=== PATIENT | male | born 1995 | race Caucasian/White ===

== ENCOUNTER 2018-08-31 11:49 | Emergency (ER) | payer OTHER ==
[2018-08-31] MEDS ORDERED: CYCLOBENZAPRINE 10 MG TAB ONE (12:38)
[2018-08-31] MEDS ORDERED: IBUPROFEN 400 MG TAB ONE (12:38)
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
[2018-08-31] MEDS ORDERED: HYDROCODONE/APAP 5/325 MG TAB ONE (14:12)
== END 2018-08-31 14:07 | disposition home or self-care (01) ==
LOC: ER 11:49
DX: M54.2 Cervicalgia (principal); R07.89 Other chest pain; V49.9XXA Car occupant (driver) (passenger) injured in unspecified traffic accident, initial encounter; J45.909 Unspecified asthma, uncomplicated
CPT/HCPCS: 70450; 71045; 72125; 99284

== ENCOUNTER 2018-09-02 12:23 | Emergency (ER) | payer OTHER ==
[2018-09-02] MEDS ORDERED: MECLIZINE HCL 12.5 MG TAB ONE (14:19)
[2018-09-02] MEDS ORDERED: DIAZEPAM 5 MG TABLET ONE (15:20)
--- NOTE | 2018-09-02 17:42 | ER ---
Nurse's Notes [facility] Name: Dre Durham Age: 22 yrs Sex: Male : 1995 Arrival Date: 09/02/2018 Time: 12:25 Bed 28 Private MD: Diagnosis: Benign positional vertigo Presentation: 09/02 12:30 Presenting complaint: Patient states: This morning at 3am he got up and when he stood aj1 he got really dizzy and had to sit down on the bed. Since then every time that he changes positions he gets dizzy. Reports the dizziness lasts 20 to 30 seconds upon changing positions before resolving. Transition of care: patient was not received from another setting of care. Onset of symptoms was September 02, 2018 at 03:00. Risk Assessment: Do you want to hurt yourself or someone else? Patient reports no desire to harm self or others. Initial Sepsis Screen: Does the patient meet any 2 criteria? No. Patient's initial sepsis screen is negative. Does the patient have a suspected source of infection? No. Patient's initial sepsis screen is negative. Care prior to arrival: None. 12:30 Method Of Arrival: Ambulatory aj1 12:30 Acuity: EVELIA 3 aj1 Triage Assessment: 12:32 General: Appears in no apparent distress. comfortable, Behavior is calm, cooperative, aj1 appropriate for age. Pain: Pain currently is 1 out of 10 on a pain scale. Neuro: Level of Consciousness is awake, alert, obeys commands, Oriented to person, place, time, situation, Reports dizziness. Cardiovascular: Patient's skin is warm and dry. Respiratory: Airway is patent Respiratory effort is even, unlabored, Respiratory pattern is regular, symmetrical. Historical: - Allergies: 12:32 Morphine; aj1 - Home Meds: 12:32 Motrin Oral [Active]; Cyclobenzaprine Oral [Active]; Tramadol Oral [Active]; aj1 - PMHx: 12:32 Asthma; aj1 - Immunization history:: Flu vaccine is not up to date. - Social history:: Smoking status: Patient/guardian denies using tobacco. - Ebola Screening: : Patient denies travel to an Ebola-affected area in the 21 days before illness onset. Screenin:15 Abuse screen: Denies threats or abuse. Denies injuries from another. Nutritional mg2 screening: No deficits noted. Tuberculosis screening: No symptoms or risk factors identified. Fall Risk None identified. Assessment: 13:15 General: Appears in no apparent distress. comfortable, Behavior is calm, cooperative. mg2 Neuro: Reports dizziness, since morning. Cardiovascular: Capillary refill < 3 seconds Patient's skin is warm and dry. Respiratory: Airway is patent Respiratory effort is even, unlabored, Respiratory pattern is regular, symmetrical. 15:36 Reassessment: Patient appears in no apparent distress at this time. Patient denies pain mg2 at this time. Patient states feeling better. Patient states symptoms have improved. Vital Signs: 12:32 BP 136 / 80; Pulse 75; Resp 18; Temp 97.0; Pulse Ox 100% on R/A; Weight 104.33 kg (R); aj1 Height 5 ft. 10 in. (177.80 cm) (R); Pain 1/10; 14:16 BP 119 / 63 RA Supine (auto/reg); Pulse 64; Resp 18; Pulse Ox 98% ; mg2 14:16 BP 125 / 75 RA Sitting (auto/reg); Pulse 67; Resp 18; Pulse Ox 99% on R/A; mg2 14:16 BP 124 / 63 RA Standing (auto/reg); Pulse 72; Resp 18; Pulse Ox 99% on R/A; mg2 15:36 BP 121 / 67; Pulse 69; Resp 18; Temp 98; Pulse Ox 100% on R/A; Pain 0/10; mg2 12:32 Body Mass Index 33.00 (104.33 kg, 177.80 cm) aj1 ED Course: 12:25 Patient arrived in ED. as 12:31 Triage completed. aj1 12:32 Arm band placed on Patient placed in an exam room. aj1 13:09 Reuben Caldera, GENNA is Primary Nurse. mg2 13:11 Randolph Kingsley NP is PHCP. pm1 13:11 Isra Kolb MD is Attending Physician. pm1 14:17 Patient has correct armband on for positive identification. Pulse ox on. NIBP on. mg2 14:17 No provider procedures requiring assistance completed. Patient did not have IV access mg2 during this emergency room visit. Administered Medications: 14:16 Drug: Meclizine 50 mg Route: PO; mg2 15:02 Follow up: Response: No adverse reaction mg2 15:06 Drug: Valium 5 mg Route: PO; mg2 15:36 Follow up: Response: No adverse reaction; Marked relief of symptoms mg2 Outcome: 15:25 Discharge ordered by MD. pm1 15:37 Discharged to home ambulatory, with family. mg2 15:37 Condition: stable 15:37 Discharge instructions given to patient, family, Instructed on discharge instructions, follow up and referral plans. medication usage, Demonstrated understanding of instructions, follow-up care, medications, Prescriptions given X 1. 15:37 Patient left the ED. mg2 Signatures: Alice Liang RN RN aj1 Maddi Kaplan Patrick, [employer]IS[employer] SOFTWARE SUPPORT ANALYST pm1 Reuben Caldera RN RN mg2
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
== END 2018-09-02 15:37 | disposition home or self-care (01) ==
LOC: ER 12:23
DX: H81.10 Benign paroxysmal vertigo, unspecified ear (principal); Z88.5 Allergy status to narcotic agent
CPT/HCPCS: 99283

== ENCOUNTER 2021-11-12 21:28 | Emergency (ER) | payer BC, OTHER ==
--- NOTE | 2021-11-12 22:43 | RAD REPORT ---
EXAM DESCRIPTION: US - Scrotum Testicles - 11/12/2021 10:15 pm CLINICAL HISTORY: scrotal pain COMPARISON: RP EXAM COMPLETE dated 05/07/2015 FINDINGS: The right testicle measures 4 x 2.8 x 3.4 cm with volume of 19.8 cc. No intratesticular ma sses or evidence of testicular torsion. The left testicle measures 4.2 x 2.6 x 3.5 cm with volume of 20.3 cc. No intratesticular masses or ev idence of testicular torsion. Tiny left hydrocele. 6 mm left epididymal cyst. No pathologic fluid collections. Increased vascularity within echogenic soft tissues inferior to the left testicle. This is nonspecifi c. IMPRESSION: Bilateral testicular blood flow. Inferior to the left testicle, echogenic soft tissues likely reflecting fat are identified. Its vascu larity is markedly increased with Valsalva and so it may represent a varicocele or fat containing ing uinal hernia and prominent veins. Consider pelvic CT to better evaluate.
--- NOTE | 2021-11-13 00:38 | ER ---
Nurse's Notes [facility] Name: Dre Durham Age: 26 yrs Sex: Male : 1995 Arrival Date: 11/12/2021 Time: 21:33 Bed Treatment Private MD: Diagnosis: Scrotal pain Presentation: 11/12 21:35 Chief complaint: Patient states: left testicle swelling started this morning, is now eh3 twice its normal size. Coronavirus screen: Vaccine status: Patient reports receiving the 2nd dose of the covid vaccine. Ebola Screen: No symptoms or risks identified at this time. Initial Sepsis Screen: Does the patient meet any 2 criteria? No. Patient's initial sepsis screen is negative. Does the patient have a suspected source of infection? No. Patient's initial sepsis screen is negative. Risk Assessment: Do you want to hurt yourself or someone else? Patient reports no desire to harm self or others. Onset of symptoms was November 12, 2021. 21:35 Method Of Arrival: Ambulatory 3 21:35 Acuity: EVELIA 3 eh3 Triage Assessment: 21:39 General: Appears in no apparent distress. uncomfortable, Behavior is calm, cooperative, eh3 appropriate for age. Pain: Complains of pain in groin Pain does not radiate. Pain currently is 3 out of 10 on a pain scale. Quality of pain is described as dull, Pain began suddenly, Is continuous, Alleviated by rest, Aggravated by increased activity. Neuro: Level of Consciousness is awake, alert, obeys commands, Oriented to person, place, time, situation. Cardiovascular: Capillary refill < 3 seconds Patient's skin is warm and dry. Respiratory: Airway is patent Respiratory effort is even, unlabored. GI: No signs and/or symptoms were reported involving the gastrointestinal system. : No signs and/or symptoms were reported regarding the genitourinary system. Derm: No signs and/or symptoms reported regarding the dermatologic system. Musculoskeletal: No signs and/or symptoms reported regarding the musculoskeletal system. Historical: - Allergies: 21:39 Morphine; eh3 - Home Meds: 21:39 sertraline 200 mg oral cap 1 cap once daily [Active]; Zyrtec Oral [Active]; eh3 - PMHx: 21:39 Asthma; eh3 - Immunization history:: Adult Immunizations up to date. - Social history:: Smoking status: Patient denies any tobacco usage or history of. Patient/guardian denies using alcohol. Screenin/31 01:35 Abuse screen: Denies threats or abuse. Nutritional screening: No deficits noted. bb Tuberculosis screening: No symptoms or risk factors identified. Fall Risk None identified. Assessment: 11/12 23:51 Reassessment: Patient is alert, oriented x 3, equal unlabored respirations, skin eh3 warm/dry/pink. 11/13 01:33 Reassessment: Patient is alert, oriented x 3, equal unlabored respirations, skin bb warm/dry/pink. pt verbalized understanding of and agrees to plan of care discharge instructions given pt ambulated with steady gait to exit. Vital Signs: 11/12 21:35 BP 122 / 82; Pulse 81; Resp 18; Temp 98.4; Pulse Ox 100% on R/A; Weight 117.93 kg; eh3 Height 5 ft. 10 in. (177.80 cm); Pain 4/10; 11/13 01:34 BP 120 / 77; Pulse 75; Resp 16 S; Pulse Ox 99% on R/A; bb 11/12 21:35 Body Mass Index 37.31 (117.93 kg, 177.80 cm) 3 ED Course: 11/12 21:33 Patient arrived in ED. bp1 21:36 Addison Mcintosh PA is PHCP. jmm 21:36 Hernan Reynolds MD is Attending Physician. jmm 21:39 Triage completed. eh3 21:39 Arm band placed on right wrist. eh3 22:17 US Scrotum Testicles In Process Unspecified. EDMS 23:10 Inserted saline lock: 20 gauge in left antecubital area, using aseptic technique. Blood as6 collected. 23:37 CT Pelvis w cont In Process Unspecified. EDMS 23:51 Awaiting radiology results. 3 11/13 00:37 Daljit Albert MD is Referral Physician. jmm 01:35 Patient has correct armband on for positive identification. bb 01:35 No provider procedures requiring assistance completed. IV discontinued, intact, bb bleeding controlled, No redness/swelling at site. Pressure dressing applied. Administered Medications: No medications were administered Medication: 01:35 VIS not applicable for this client. bb Outcome: 00:38 Discharge ordered by MD. jmm 01:35 Discharged to home ambulatory. jeremy 01:35 Condition: stable 01:35 Discharge instructions given to patient, Instructed on discharge instructions, follow up and referral plans. Demonstrated understanding of instructions, follow-up care. 01:35 Patient left the ED. jeremy Signatures: Dispatcher [employer] EDMS Addison Mcintosh PA PA jmm Ballard, Brenda, RN RN bb Mini Bob Ashby, RN RN as6 Gracia Flaherty RN RN eh3
--- NOTE | 2021-11-13 00:39 | EDPHYS ---
Physician Documentation [facility] Name: Dre Durham Age: 26 yrs Sex: Male : 1995 Arrival Date: 11/12/2021 Time: 21:33 Bed Treatment Private MD: ED Physician Hernan Reynolds HPI: 11/12 21:50 This 26 yrs old Male presents to ER via Ambulatory with complaints of Testicular jmm Swelling. 21:50 The patient presents with swelling. Onset: The symptoms/episode began/occurred today. jmm Modifying factors: The symptoms are alleviated by nothing, the symptoms are aggravated by nothing. Associated signs and symptoms: Pertinent negatives: dysuria, fever. This is a 26-year-old male with no chronic medical conditions the presents emerged department with complaints of scrotal swelling beginning today. Denies dysuria, denies discharge.. Historical: - Allergies: 21:39 Morphine; eh3 - Home Meds: 21:39 sertraline 200 mg oral cap 1 cap once daily [Active]; Zyrtec Oral [Active]; eh3 - PMHx: 21:39 Asthma; eh3 - Immunization history:: Adult Immunizations up to date. - Social history:: Smoking status: Patient denies any tobacco usage or history of. Patient/guardian denies using alcohol. ROS: 21:50 Constitutional: Negative for fever, chills, and weight loss, Cardiovascular: Negative jmm for chest pain, palpitations, and edema, Respiratory: Negative for shortness of breath, cough, wheezing, and pleuritic chest pain. 21:50 : Positive for testicular pain 21:50 All other systems are negative. Exam: 21:50 Constitutional: This is a well developed, well nourished patient who is awake, alert, jmm and in no acute distress. Head/Face: atraumatic. Eyes: EOMI, no conjunctival erythema appreciated ENT: Moist Mucus Membranes Neck: Trachea midline, Supple Chest/axilla: Normal chest wall appearance and motion. Cardiovascular: Regular rate and rhythm. No edema appreciated Respiratory: Normal respirations, no respiratory distress appreciated Abdomen/GI: Non distended Back: Normal ROM Skin: General appearance color normal 21:50 : Male external genitalia: swelling: scrotal, of the epididymis area, that is mild. 21:50 Musculoskeletal/extremity: ROM: intact in all extremities. 21:50 Skin: Appearance: Color: normal in color. 21:50 Neuro: Orientation: is normal, Mentation: is normal, Memory: is normal. 21:50 Psych: Behavior/mood is pleasant, cooperative. Vital Signs: 21:35 BP 122 / 82; Pulse 81; Resp 18; Temp 98.4; Pulse Ox 100% on R/A; Weight 117.93 kg; eh3 Height 5 ft. 10 in. (177.80 cm); Pain 06/23; 11/13 01:34 BP 120 / 77; Pulse 75; Resp 16 S; Pulse Ox 99% on R/A; bb 11/12 21:35 Body Mass Index 37.31 (117.93 kg, 177.80 cm) eh3 MDM: 11/12 22:18 Patient medically screened. [facility] 11/13 00:37 Data reviewed: vital signs, nurses notes. Counseling: I had a detailed discussion with sophia the patient and/or guardian regarding: the historical points, exam findings, and any diagnostic results supporting the discharge/admit diagnosis, radiology results, the need for outpatient follow up, to return to the emergency department if symptoms worsen or persist or if there are any questions or concerns that arise at home. ED course: Ultrasound did not reveal torsion or signs of epididymitis. CT of the pelvis was negative. Patient advised to follow-up with urology for further evaluation otherwise given strict return precautions. Patient understood and agrees plan of care.. 11/12 21:49 Order name: US Scrotum Testicles; Complete Time: 22:49 [facility] 11/12 22:50 Order name: CT Pelvis w cont [facility] 11/12 22:50 Order name: Saline Lock; Complete Time: 23:10 [facility] Administered Medications: No medications were administered Disposition Summary: 11/13/21 00:38 Discharge Ordered Location: Home [facility] Condition: Stable [facility] Diagnosis - Scrotal pain [facility] Followup: [facility] - With: Daljit Albert MD - When: 2 - 3 days - Reason: Recheck today's complaints, Continuance of care, Re-evaluation by your physician Discharge Instructions: - Discharge Summary Sheet [facility] - Varicocele [facility] Forms: - Medication Reconciliation Form [facility] - Thank You Letter [facility] - Antibiotic Education [facility] - Prescription Opioid Use [facility] Signatures: Dispatcher [employer] EDMS Mickail, Addison, PA PA jmm Gracia Flaherty, RN RN eh3
[2021-11-13 02:11] VITALS: TEMP 98.4
[2021-11-13 02:13] VITALS: BP 120/77; O2SAT 99
--- NOTE | 2021-11-13 17:14 | RAD REPORT ---
EXAM DESCRIPTION: Pelvis W/Cont CLINICAL HISTORY: Scrotal pain, ct recommended after US COMPARISON: None Available. TECHNIQUE: CT of the pelvis performed following IV administration of iodinated contrast. This exam was performed according to our departmental dose-optimization program, which includes automated expo sure control, adjustment of the mA and/or kV according to patient size and/or use of iterative recons truction technique. FINDINGS: Bones: No destructive bone lesions identified. Pelvis: Bladder: Urinary bladder is unremarkable. Bowel: No dilated loops of large or small bowel. Appendix: The visualized appendix is unremarkable. Pelvis: Prostate is not enlarged. Vasculature: The aorta and IVC have normal caliber and position. The portal vein is patent. The pro ximal visceral and renal arteries are patent. Stomach: The stomach and duodenum have normal course. Other: No free intraperitoneal air. No free fluid or lymphadenopathy. Postoperative change of the scrotum suggesting previous vasectomy. No definite fluid collection, significant subcutaneous fat st randing, or subcutaneous air in the scrotal/perineal soft tissues. IMPRESSION: 1. No acute inflammatory or obstructive process identified. Electronically signed by: Sergei Jon 11/13/2021 12:11 AM CDT Due to temporary technical issues with the PACS/Fluency reporting system, reports are being signed by the in house radiologists without review as a courtesy to insure prompt reporting. The interpreting radiologist is fully responsible for the content of the report.
== END 2021-11-13 01:35 | disposition home or self-care (01) ==
LOC: ER 21:28
DX: N50.82 Scrotal pain (principal); Z88.5 Allergy status to narcotic agent
CPT/HCPCS: 82565; 72193; 76870; Q9967